=== PATIENT | female | born 2000 | race Caucasian/White ===

== ENCOUNTER 2021-04-20 16:05 | Emergency (ER) | payer OTHER, SELFPAY ==
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
[2021-04-20 16:17] VITALS: BP 142/68; PULSE 86; RESP 18; TEMP 36.7; O2SAT 100; BMI 28.9
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
== END 2021-04-20 19:11 | disposition home or self-care (01) ==
PROVIDERS: Emergency Provider Internal Medicine
DX: S06.0X9A Concussion with loss of consciousness of unspecified duration, initial encounter (principal); S13.4XXA Sprain of ligaments of cervical spine, initial encounter; S29.011A Strain of muscle and tendon of front wall of thorax, initial encounter; S43.402A Unspecified sprain of left shoulder joint, initial encounter; M25.512 Pain in left shoulder; G44.309 Post-traumatic headache, unspecified, not intractable; R07.81 Pleurodynia; M54.2 Cervicalgia; V43.52XA Car driver injured in collision with other type car in traffic accident, initial encounter; Y93.9 Activity, unspecified; Y92.410 Unspecified street and highway as the place of occurrence of the external cause; Y99.9 Unspecified external cause status; Z79.899 Other long term (current) drug therapy
CPT/HCPCS: 70450; 71046; 72125; 73030; 99284